=== PATIENT | female | born 1980 | race Caucasian/White ===

== ENCOUNTER 2019-08-24 19:44 | Emergency (ER) | payer OTHER ==
[~2019-08-24] VITALS: Ht 165.1 cm; Wt 60.0 kg
[~2019-08-24 19:44] MED LIST: AMOXICILLIN875 MG OR; AUGMENTIN875TAB PO; CIPRODEX1 ML AU; DEPO-MEDROL40 MG/ML IM; FLONASE NASAL50 MCG; HYDROXYZ HCL25 MG PO; LEXAPRO20 MG PO; MEDDOSEPAK OR; NAPROSYN500 MG PO; NO; ZITHROMAX250 MG PO
[2019-08-24] MEDS ORDERED: MACROBID100 MG PO (20:02)
[2019-08-24] MEDS ORDERED: IRON325 M1 PO (20:04)
[2019-08-24 20:51] LABS: URINE BILIRUBIN - DIPSTICK NEGATIVE (NEGATIVE); URINE BLOOD DIPSTICK NEGATIVE (NEGATIVE); URINE COLOR YELLOW; URINE GLUCOSE - DIPSTICK NEGATIVE (NEGATIVE); URINE KETONE NEGATIVE (NEGATIVE); URINE LEUK ESTERASE NEGATIVE (NEGATIVE); URINE NITRITE - DIPSTICK NEGATIVE (Negative); URINE PROTEIN - DIPSTICK NEGATIVE (NEG-TRACE); URINE SPECIFIC GRAVITY >=1.030; URINE UROBILINOGEN - DIPSTICK 0.2 E.U./dL (0.2)
[2019-08-24] MEDS ORDERED: ULTRAM50 M1 PO (21:48)
[2019-08-24 21:50] VITALS: BP 150/58
== END 2019-08-24 21:58 | disposition home or self-care (01) | DRG 552 ==
LOC: ED 19:44
PROVIDERS: Emergency Medicine
DX: S13.8XXA Sprain of joints and ligaments of other parts of neck, initial encounter (principal); S50.312A Abrasion of left elbow, initial encounter; V48.0XXA Car driver injured in noncollision transport accident in nontraffic accident, initial encounter

== ENCOUNTER 2020-07-14 07:49 | Day surgery (SDC) | payer BC ==
[~2020-07-14 07:49] MED LIST changes: +IRON325 M1 PO; +MACROBID100 MG PO; +PRILOSEC20 MG/CAP PO; +ULTRAM50 M1 PO
[2020-07-14 10:27] VITALS: BP 118/67
== END 2020-07-14 10:15 | disposition other institution (70) | DRG 951 ==
LOC: ENDO 07:49 → ORM 10:15 → ENDO 10:15
PROVIDERS: ATTEND Internal Medicine Gastroenterology
PROC: 0DJD8ZZ Inspection of Lower Intestinal Tract, Via Natural or Artificial Opening Endoscopic (ICD-10-PCS; principal; 2020-07-14)
DX: Z12.11 Encounter for screening for malignant neoplasm of colon (principal); K64.4 Residual hemorrhoidal skin tags; K64.8 Other hemorrhoids; K21.9 Gastro-esophageal reflux disease without esophagitis; Z80.0 Family history of malignant neoplasm of digestive organs; Z20.828 Contact with and (suspected) exposure to other viral communicable diseases; R07.9 Chest pain, unspecified

== ENCOUNTER 2020-07-14 10:18 | Emergency (ER) | payer BC ==
[~2020-07-14] VITALS: Ht 167.6 cm; Wt 68.0 kg
[2020-07-14 11:17] LABS: HEMATOCRIT 42.7 % (37.0-47.0); HEMOGLOBIN 14.1 g/dl (12.0-16.0); IMMATURE GRANULOCYTES 0.2 % (0.0-5.0); MEAN CORPUSCULAR HGB 29.4 pG CALC (26.0-32.0); NEUT# 3.81 thou/uL (2.00-7.15); RED BLOOD COUNT 4.8 mill/uL (4.20-5.60); RED CELL DISTRI WIDTH 11.8 % (11.5-15.5)
[2020-07-14 11:29] LABS: ALKALINE PHOSPHATASE 54 u/l (38-126); ANION GAP 12 (6-22 (CALC)); BILIRUBIN, TOTAL 0.9 mg/dL (0.0-1.4); BUN 8 mg/dL (7-17); BUN/CREATININE RATIO 10 (12-20 (CALC)); CARBON DIOXIDE 24 mmol/l (22-30); CHLORIDE 105 mmol/l (95-108); CREATININE 0.8 mg/dL (0.5-1.0); GFR > 60 ML/MIN (>=60 (CALC)); GFR FOR AFR.AMER. > 60 ML/MIN (>=60 (CALC)); LIPASE 48 u/l (23-300); POTASSIUM 4.1 mmol/l (3.5-5.1); SGOT/AST 22 u/l (14-36); SODIUM 137 mmol/l (137-146); TOTAL PROTEIN 6.4 g/dL (6.3-8.2)
[2020-07-14 15:18] VITALS: BP 116/64
== END 2020-07-14 15:25 | disposition home or self-care (01) | DRG 313 ==
LOC: ED 10:18
PROVIDERS: Family Medicine
PROC: 0DJD8ZZ Inspection of Lower Intestinal Tract, Via Natural or Artificial Opening Endoscopic (ICD-10-PCS; principal; 2020-07-14)
DX: R07.9 Chest pain, unspecified (principal); Z98.890 Other specified postprocedural states; Z12.11 Encounter for screening for malignant neoplasm of colon; K64.4 Residual hemorrhoidal skin tags; K64.8 Other hemorrhoids; K21.9 Gastro-esophageal reflux disease without esophagitis; Z80.0 Family history of malignant neoplasm of digestive organs; Z20.828 Contact with and (suspected) exposure to other viral communicable diseases

== ENCOUNTER 2021-11-09 19:52 | Emergency (ER) | payer BC ==
[~2021-11-09] VITALS: Ht 167.6 cm; Wt 70.0 kg
[2021-11-09] MEDS ORDERED: ZANTAC 75 PO (20:13)
[2021-11-09 20:29] LABS: HEMATOCRIT 44.2 % (37.0-47.0); HEMOGLOBIN 14.9 g/dl (12.0-16.0); MEAN CELL VOLUME 88.6 fL CALC (80.0-100.0); MEAN CORPUSCULAR HGB 29.9 pG CALC (26.0-32.0); MEAN CORPUSCULAR HGB CONC 33.7 g/dL CAL (32.0-36.0); NEUT# 3.12 thou/uL (2.00-7.15); RED BLOOD COUNT 4.99 mill/uL (4.20-5.60); RED CELL DISTRI WIDTH 11.5 % (11.5-15.5)
[2021-11-09 20:45] LABS: D-DIMER 0.19 mg/L (0.19-0.60)
[2021-11-09 20:46] LABS: ALBUMIN 4.3 g/dL (3.2-5.0); ALKALINE PHOSPHATASE 71 u/l (38-126); AMYLASE 99 u/l (30-110); ANION GAP 11 (6-22 (CALC)); BILIRUBIN, TOTAL 0.4 mg/dL (0.0-1.4); BUN 16 mg/dL (7-17); BUN/CREATININE RATIO 19 (12-20 (CALC)); CARBON DIOXIDE 26 mmol/l (22-30); CHLORIDE 105 mmol/l (95-108); CREATININE 0.9 mg/dL (0.5-1.0); GFR > 60 ML/MIN (>=60 (CALC)); GFR FOR AFR.AMER. > 60 ML/MIN (>=60 (CALC)); LIPASE 74 u/l (23-300); POTASSIUM 3.7 mmol/l (3.5-5.1); SGOT/AST 23 u/l (14-36); SODIUM 139 mmol/l (137-146); TOTAL PROTEIN 7.7 g/dL (6.3-8.2)
[2021-11-09 20:50] LABS: ACT PARTIAL THROMBO TIME 27.6 SECONDS (20.0-32.5); PROTHROMBIN TIME 10.1 SECONDS (9.0-12.5)
[2021-11-09 20:56] LABS: MYOGLOBIN 11 ng/mL (0 - 62)
[2021-11-09] MEDS ORDERED: TORADOL PO (21:25)
[2021-11-09 21:29] VITALS: BP 141/71
== END 2021-11-09 21:34 | disposition home or self-care (01) | DRG 313 ==
LOC: ED 19:52
PROVIDERS: Family Medicine
DX: R07.89 Other chest pain (principal)

== ENCOUNTER 2023-10-09 06:57 | Day surgery (SDC) | payer BC ==
[~2023-10-09] VITALS: Ht 167.6 cm; Wt 72.6 kg
[~2023-10-09 06:57] MED LIST changes: +PEPCID40 MG PO; +TORADOL PO; +ZANTAC 75 PO
[2023-10-09 10:01] VITALS: BP 127/76
== END 2023-10-09 10:26 | disposition home or self-care (01) | DRG 951 ==
LOC: ENDO 06:57 → ORM 09:00 → ENDO 10:26
PROVIDERS: ATTEND Internal Medicine Gastroenterology
PROC: 0DBB8ZX Excision of Ileum, Via Natural or Artificial Opening Endoscopic, Diagnostic (ICD-10-PCS; principal; 2023-10-09)
PROC: 0DB48ZX Excision of Esophagogastric Junction, Via Natural or Artificial Opening Endoscopic, Diagnostic (ICD-10-PCS; 2023-10-09)
PROC: 0DB78ZX Excision of Stomach, Pylorus, Via Natural or Artificial Opening Endoscopic, Diagnostic (ICD-10-PCS; 2023-10-09)
DX: Z12.11 Encounter for screening for malignant neoplasm of colon (principal); K63.5 Polyp of colon; K64.8 Other hemorrhoids; K64.4 Residual hemorrhoidal skin tags; K21.9 Gastro-esophageal reflux disease without esophagitis; K29.70 Gastritis, unspecified, without bleeding; K44.9 Diaphragmatic hernia without obstruction or gangrene; K22.89 Other specified disease of esophagus; K31.9 Disease of stomach and duodenum, unspecified; Q40.8 Other specified congenital malformations of upper alimentary tract; F32.A Depression, unspecified; Z80.0 Family history of malignant neoplasm of digestive organs
CPT/HCPCS: J0131